=== PATIENT | female | born 1955 | race Caucasian/White ===

== ENCOUNTER → 2021-09-29 | Outpatient (CLI) | payer MEDICARE, OTHER | LOC: RT 13:37 | DX: R09.02 Hypoxemia (principal); J44.9 Chronic obstructive pulmonary disease, unspecified | CPT/HCPCS: 36600; 71046; 82803 ==

== ENCOUNTER → 2021-09-29 | Outpatient (CLI) | payer MEDICARE, OTHER | LOC: HEART 5 11:25 | DX: R06.02 Shortness of breath (principal) | CPT/HCPCS: 94060; 94729 ==